=== PATIENT | female | born 1980 | race Caucasian/White ===

== ENCOUNTER 2018-09-18 15:53 | Emergency (ER) | payer OTHER ==
[~2018-09-18] VITALS: Ht 162.6 cm; Wt 82.6 kg
[2018-09-18 16:10] VITALS: BP_SYST 129
--- NOTE | 2018-09-18 16:55 | NUR ---
Patient to ER bed 7 to gown for evaluation. Side rails up. Report given to Paddy PEARCE.
--- NOTE | 2018-09-18 16:57 | NUR ---
Pt here for c/o vaginal bleeding for 3 days and lower pelvic pain 8/10, bleeing1 pad in an hour, denied feeling weak, states she feels a little dizzy. Pt is ambulating with steady gait. Pt hs hx of uterine fibroids. VSS, will continue to monitor.
--- NOTE | 2018-09-18 16:58 | NUR ---
at bedside to assess pt.
[2018-09-18] MEDS ORDERED: NACL 0.9% 1,000 ML IV ONE (17:15)
[2018-09-18 17:29] LABS: BILIRUBIN,URINE NEGATIVE (NEGATIVE); BLOOD, URINE 3+ (NEGATIVE); CLARITY/URINE CLEAR (CLEAR); COLOR,URINE YELLOW (YELLOW); GLUCOSE,URINE NEGATIVE (NEGATIVE); KETONES,URINE NEGATIVE (NEGATIVE); LEUKOCYTE ESTERASE ,URINE NEGATIVE (NEGATIVE); NITRITE, URINE NEGATIVE (NEGATIVE); PROTEIN URINE NEGATIVE (NEGATIVE); UROBILINOGEN,URINE 0.2 (0.2-1.0)
[2018-09-18 17:32] LABS: BACTERIA,URINE RARE /HPF (None Seen); RBC,URINE >100 /HPF (0-3); WBC,URINE 0-3 /HPF (0-3)
[2018-09-18 17:37] LABS: BASOPHILS % (AUTO) 0.4 % (0.0-2.0); EOSINOPHILS # (AUTO) 0.2 K/uL (0.0-0.4); EOSINOPHILS % (AUTO) 2.7 % (0.0-4.0); LYMPHOCYTES # (AUTO) 2.4 K/uL (1.0-5.5); LYMPHOCYTES % (AUTO) 26.7 % (20.5-51.5); MEAN CORPUSCULAR HEMOGLOBIN 29 pg (27-31); MEAN CORPUSCULAR HGB CONC 33 % (32-36); MEAN CORPUSCULAR VOLUME 87 fL (79.0-98.0); MONOCYTES # (AUTO) 0.5 K/uL (0.0-1.0); MONOCYTES % (AUTO) 5.7 % (1.7-9.3); NEUTROPHILS % (AUTO) 64.5 % (40.0-70.0); PLATELET COUNT (AUTO) 509 K/uL (130-430); RED BLOOD CELL COUNT(AUTO) 4.49 MIL/uL (4.2-6.2); RED CELL DISTRIBUTION WIDTH 13.6 % (9.0-15.0); WHITE BLOOD COUNT (AUTO) 9.1 K/uL (4.8-10.8)
[2018-09-18 17:44] LABS: CALCIUM 8.4 mg/dL (8.4-11.0); CREATININE 0.98 mg/dL (0.55-1.30); POTASSIUM 3.6 mmol/L (3.5-5.1)
[2018-09-18 17:47] LABS: PROTHROMBIN TIME 10.6 SECS (9.5-12.5)
--- NOTE | 2018-09-18 18:00 | NUR ---
Pt went to US with tech on wheelchair, no acute distress noted.
--- NOTE | 2018-09-18 19:15 | NUR ---
Report given to RAMSES Antoine.
--- NOTE | 2018-09-18 19:55 | NUR ---
Patient given written and verbal discharge instructions and verbalizes understanding. ER MD Dr. Lassiter discussed with patient the results and treatment provided. Patient in stable condition. ID arm band removed. IV catheter removed intact and dressing applied, no active bleeding. Rx of Provera given. Patient educated on pain management and to follow up with PMD. Pain Scale 3/10 and tolerable for patient . Opportunity for questions provided and answered. Medication side effect fact sheet provided.
== END 2018-09-18 19:57 | disposition home or self-care (01) ==
LOC: SED 15:53
DX: N93.8 Other specified abnormal uterine and vaginal bleeding (principal); Z88.5 Allergy status to narcotic agent; Z88.6 Allergy status to analgesic agent
CPT/HCPCS: 36415; 76830; 76857; 80048; 81000; 81025; 84702; 85025; 85610; 85730; 86900; 86901; 99284; J7030

== ENCOUNTER 2018-12-04 05:55 | Day surgery (SDC) | payer OTHER ==
[2018-12-03 16:08] LABS: BILIRUBIN,URINE NEGATIVE (NEGATIVE); BLOOD, URINE 2+ (NEGATIVE); CLARITY/URINE CLEAR (CLEAR); COLOR,URINE YELLOW (YELLOW); GLUCOSE,URINE NEGATIVE (NEGATIVE); KETONES,URINE NEGATIVE (NEGATIVE); LEUKOCYTE ESTERASE ,URINE NEGATIVE (NEGATIVE); NITRITE, URINE NEGATIVE (NEGATIVE); PH,URINE 5.5 (5.0-8.0); PROTEIN URINE NEGATIVE (NEGATIVE); UROBILINOGEN,URINE 0.2 (0.2-1.0)
[2018-12-03 16:16] LABS: BACTERIA,URINE FEW /HPF (None Seen); RBC,URINE 0-3 /HPF (0-3)
[2018-12-03 16:18] LABS: CALCIUM 8.8 mg/dL (8.4-11.0); CREATININE 0.94 mg/dL (0.55-1.30); POTASSIUM 3.1 mmol/L (3.5-5.1)
[2018-12-03 16:24] LABS: BASOPHILS % (AUTO) 0.4 % (0.0-2.0); EOSINOPHILS # (AUTO) 0.3 K/uL (0.0-0.4); EOSINOPHILS % (AUTO) 2.7 % (0.0-4.0); HEMOGLOBIN 12.3 g/dL (12.0-16.0); LYMPHOCYTES # (AUTO) 2.5 K/uL (1.0-5.5); LYMPHOCYTES % (AUTO) 25.5 % (20.5-51.5); MEAN CORPUSCULAR HEMOGLOBIN 29 pg (27-31); MEAN CORPUSCULAR HGB CONC 33 % (32-36); MEAN CORPUSCULAR VOLUME 86 fL (79.0-98.0); MONOCYTES # (AUTO) 0.6 K/uL (0.0-1.0); MONOCYTES % (AUTO) 6.1 % (1.7-9.3); NEUTROPHILS # (AUTO) 6.5 K/uL (1.8-7.7); NEUTROPHILS % (AUTO) 65.3 % (40.0-70.0); PLATELET COUNT (AUTO) 501 K/uL (130-430); RED BLOOD CELL COUNT(AUTO) 4.31 MIL/uL (4.2-6.2); RED CELL DISTRIBUTION WIDTH 13.8 % (9.0-15.0); TOTAL BILIRUBIN 0.4 mg/dL (0.0-1.0)
[2018-12-03 16:36] LABS: INR 1.1 (0.8-1.2); PROTHROMBIN TIME 10.8 SECS (9.5-12.5)
[~2018-12-04] VITALS: Ht 162.6 cm; Wt 83.0 kg
[2018-12-04] MEDS ORDERED: CEFAZOLIN 2 GM IVPB PREMIX 50 ML IV ONE ×2 (06:59→07:00)
[2018-12-04] MEDS ORDERED: D5LR 1,000 ML IV SCH (07:00)
[2018-12-04] MEDS ORDERED: SEVOFLURANE 15 MIN GAS INH ONE (07:20)
[2018-12-04] MEDS ORDERED: EYE OP ONE (07:20)
[2018-12-04] MEDS ORDERED: NS 1000 ML IV.SOLN IV ONE (07:20)
[2018-12-04] MEDS ORDERED: KETOROLAC TROMETHAMINE 30 MG VIAL IVP ONE (07:20)
[2018-12-04] MEDS ORDERED: PROPOFOL 200MG/ 20ML VIAL (DIPRIVAN) IV ONE (07:20)
[2018-12-04] MEDS ORDERED: fentaNYL CITRATE/PF 100 MCG/2 ML AMP IVP ONE (07:20)
[2018-12-04] MEDS ORDERED: LR 1,000 ML IV.SOLN IV ONE (07:20)
[2018-12-04] MEDS ORDERED: MIDAZOLAM HCL 5 MG/5 ML VIAL IVP ONE (07:20)
[2018-12-04] MEDS ORDERED: ONDANSETRON HCL 4 MG/2 ML VIAL IVP ONE (07:20)
[2018-12-04] MEDS ORDERED: PHENYLEPHRINE HCL 2.5% OP ONE (07:20)
[2018-12-04] MEDS ORDERED: KETOROLAC TROMETHAMINE 30 MG VIAL IVP PRN (07:45)
[2018-12-04] MEDS ORDERED: fentaNYL CITRATE/PF 100 MCG/2 ML AMP IVP PRN ×2 (07:45)
[2018-12-04] MEDS ORDERED: ONDANSETRON HCL 4 MG/2 ML VIAL IVP PRN (07:45)
[2018-12-04] MEDS ORDERED: IBUPROFEN 800 MG TABLET PO PRN (08:15)
[2018-12-04] MEDS ORDERED: PROMETHAZINE INJ.Non-Formulary 25 MG/ML AMP IM PRN (08:15)
[2018-12-04 10:10] VITALS: BP_SYST 108
== END 2018-12-04 09:50 | disposition home or self-care (01) ==
LOC: SMU 05:55 → SDS 05:55
PROVIDERS: ATTEND Obstetrics & Gynecology Gynecology
DX: N92.0 Excessive and frequent menstruation with regular cycle (principal); F41.9 Anxiety disorder, unspecified; G43.829 Menstrual migraine, not intractable, without status migrainosus; K21.0 Gastro-esophageal reflux disease with esophagitis; Z98.890 Other specified postprocedural states; Z79.899 Other long term (current) drug therapy; Z98.51 Tubal ligation status
CPT/HCPCS: 36415; 58353; 71046; 80053; 81000; 84703; 85025; 85610; 85730; 86886; 86900; 86901; 93005; J0690; J1885; J2250; J2405; J2704; J3010; J7030; J7120